=== PATIENT | female | born 1980 | race American Indian/Alaskan Native ===

== ENCOUNTER 2020-09-27 13:18 | Emergency (ER) | payer SELFPAY ==
[2020-09-27 14:13] VITALS: BP 116/88
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
== END 2020-09-27 15:39 | disposition home or self-care (01) ==
LOC: ED 13:18
DX: M54.2 Cervicalgia (principal); G43.909 Migraine, unspecified, not intractable, without status migrainosus; M25.552 Pain in left hip; Z98.51 Tubal ligation status; Z79.899 Other long term (current) drug therapy; V87.7XXA Person injured in collision between other specified motor vehicles (traffic), initial encounter; Y93.89 Activity, other specified; Y92.488 Other paved roadways as the place of occurrence of the external cause; Y99.8 Other external cause status
CPT/HCPCS: 99281